=== PATIENT | male | born 1995 | race American Indian/Alaskan Native ===

== ENCOUNTER 2016-07-14 19:35 | Emergency (ER) | payer OTHER ==
[2016-07-14] MEDS ORDERED: PERCOCET 5/325 PO ONE (23:40)
[2016-07-14] MEDS ORDERED: XYLOCAINE 1% 20 mL INFILTRATI NR (23:45)
--- NOTE | 2016-07-15 00:17 | Emergency Department Report ---
HPI - General Chief Complaint: Wound/Laceration Time Seen by Provider: 07/14/16 22:59 - HPI HPI: This is a 20-year-old male presents to ED complaining of right finger injury that happened at work earlier today. 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 Patient sates bleeding began shortly after incident. Patient states bleeding is moderately controlled. Patient denies loss of sensation in the fingers. Patient's knees nailbed came off. Patient denies suicidal shows sinus nausea/vomiting/abdominal pain/chest pain or any other problems. ED Past Medical Hx - Past Medical History Previous Medical History?: No - Surgical History Past Surgical History?: No - Social History Smoking Status: Never Smoker Substance Use Type: None - Medications Home Medications: Home Medications Medication Instructions Recorded Confirmed Last Taken Type Cyclobenzaprine [Flexeril 10mg] 10 mg PO Q8H PRN #21 tablet 09/16/14 Unknown Rx Ranitidine HCl [Ranitidine] 150 mg PO Q12H #30 tablet 09/16/14 Unknown Rx Cephalexin [Keflex] 500 mg PO BID #14 capsule 07/15/16 Unknown Rx Ibuprofen [Motrin] 800 mg PO Q8HR PRN #30 tablet 07/15/16 Unknown Rx oxyCODONE /ACETAMINOPHEN [Percocet 1 tab PO Q6HR PRN #12 tablet 07/15/16 Unknown Rx 5/325] ED Review of Systems ROS: Stated complaint: LACERATION TO FINGER Other details as noted in HPI Constitutional: denies: chills, fever Eyes: denies: eye pain, eye discharge, vision change ENT: denies: ear pain, throat pain Respiratory: denies: cough, shortness of breath, wheezing Cardiovascular: denies: chest pain, palpitations Endocrine: no symptoms reported Gastrointestinal: denies: abdominal pain, nausea, diarrhea Genitourinary: denies: urgency, dysuria, frequency, discharge Musculoskeletal: denies: back pain, joint swelling, arthralgia Skin: denies: rash, lesions Neurological: denies: headache, weakness, numbness, paresthesias, confusion Psychiatric: denies: anxiety, depression Hematological/Lymphatic: denies: easy bleeding, easy bruising Physical Exam - Physical Exam Vital Signs: Vital Signs 07/14/16 20:22 Temperature 98.1 F Pulse Rate 68 Respiratory 22 Rate Blood Pressure 138/74 O2 Sat by Pulse 98 Oximetry Physical Exam: GENERAL: Alert and oriented x3, no apparent distress, Normal Gait, atraumatic. HEAD: Head is normocephalic and a-traumatic. EYES: Extra ocular muscles are intact. Pupils are equal, round, and reactive to light and accommodation. EARS: symetrical, atraumatic, non tender, ear canal clear and moderate cerumen, tympanic membrance non inflamed. gross auditory nml bilaterally. NOSE: Nose symetrical, Nontender,Nares appeared normal. MOUTH:Mouth is well hydrated and without lesions. Tonsils nonerythematous or swollen, Uvula midline, Tongue not elevated. Mucous membranes are moist. Posterior pharynx clear, no exudate or lesions. Patent airways. NECK: Supple. Non edematous, No carotid bruits. No lymphadenopathy or thyromegaly. LUNGS: Symetrical with respiration, No wheezing, no rales or crackles, CTAB. HEART: S1, S2 present, regular rate and rhythm without murmur, no rubs, no gallops. ABDOMEN: No organomegaly was noted,Positive bowel sounds, soft, and non- distended. . Nontender to palpation on all Quadrants, NO CVA tenderness. EXTREMITIES/MUSCULOSKELETAL: No cyanosis, clubbing, rash, lesions or edema. Full ROM bilaterally. UE/LE Pulses 2+ bilaterally. LE and UE 5+ strength bilaterally NEUROLOGIC: No focal Deficit, Cranial nerves II through XII are grossly intact. No loss of sensation, PSYCHIATRIC: Mood is congruent with affect, denies suicidal or homicidal ideations. SKIN: Warm and dry, No lesions, No ulceration or induration present. Body Four View: 1 - 1 cm laceration right across nail bed with nail bed interrupted. ED Course Vital Signs 07/14/16 20:22 Temperature 98.1 F Pulse Rate 68 Respiratory 22 Rate Blood Pressure 138/74 O2 Sat by Pulse 98 Oximetry ED Medical Decision Making - Radiology Data Radiology results: report reviewed, image reviewed FINAL REPORT PROCEDURE: XR HAND 3 RT TECHNIQUE: RIGHT finger radiographs, including AP, lateral, and oblique views. HISTORY: injury w lac COMPARISON: No prior studies are available for comparison. FINDINGS: Fracture (s) and/or Dislocation(s): There is a slightly displaced and impacted fracture through the tuft of the distal phalanx 3rd digit right hand. The remaining osseous structures appear intact.. Joint space(s): Normal . Soft tissues: Mild soft tissue swelling of the 3rd digit. There is a bandage around the distal 3rd digit. Metallic ring overlies the proximal phalanx.. Bone mineralization: Normal . Foreign bodies: Metallic ring overlies the proximal phalanx. Bandaging material along the distal 3rd digit is noted.. IMPRESSION: Slightly displaced impacted fracture through the tuft of the distal phalanx 3rd digit right hand. There is associated soft tissue swelling. Transcribed By: JUAN Dictated By: KESHAV BLAKELY MD Electronically Authenticated By: KESHAV BLAKELY MD Signed Date/Time: 07/15/16 0014 - Medical Decision Making 20-year-old male presents with right middle finger phalanx fracture ED course: Patient received 2 tablets of Percocet. Right hand x-ray shows posterior phalanx fracture: See above The 1cm laceration wound was prepped and draped in sterile fashion. Anesthesia was achieved with 4mL of 1% lidocaine with a digital block. The wound was irrigated with 200cc NS and explored. There were no foreign bodies . Nailbed visualized outside of finger. Bleeding stopped. She will antibody dressed on finger. Finger was dressed sterilely and put in a splint The patient tolerated the procedure without complication. She also received 4 mg of morphine IM. Discussed the x-ray findings the patient. Discussed the patient to follow-up with orthopedics. Discussed the patient take medication as described. Discussed patient to keep the laceration dry for the next 3 days and wrapped up.. Disc discussed with patient to follow-up with orthopedic doctor in 3-5 days. Vital signs are normal. Patient is in no acute respiratory distress. Critical care attestation.: If time is entered above; I have spent that time in minutes in the direct care of this critically ill patient, excluding procedure time. ED Disposition Clinical Impression: Fracture of finger, middle phalanx, right, open Qualifiers: Encounter type: initial encounter Qualified Code(s): S62.629B - Displaced fracture of medial phalanx of unspecified finger, initial encounter for open fracture Laceration of nail bed of finger Qualifiers: Encounter type: initial encounter Qualified Code(s): S61.319A - Laceration without foreign body of unspecified finger with damage to nail, initial encounter Fingertip contusion Qualifiers: Encounter type: initial encounter Qualified Code(s): S60.00XA - Contusion of unspecified finger without damage to nail, initial encounter Disposition: DISCHARGED TO HOME OR SELFCARE Is pt being admited?: No Does the pt Need Aspirin: No Condition: Stable Instructions: Finger Fracture (ED), Toenail/Fingernail Removal (ED) Prescriptions: Cephalexin [Keflex] 500 mg PO BID #14 capsule Ibuprofen [Motrin] 800 mg PO Q8HR PRN #30 tablet PRN Reason: Pain oxyCODONE /ACETAMINOPHEN [Percocet 5/325] 1 tab PO Q6HR PRN #12 tablet PRN Reason: Pain Referrals: PRIMARY MD SAMARA [Primary Care Provider] - 3-5 Days AFTAB FISCHER MD [Staff Physician] - 3-5 Days ELENA STEELE MD [Referring] - 3-5 Days Forms: Accompanied Note, Work/School Release Form(ED) Time of Disposition: 02:23
[2016-07-15] MEDS ORDERED: NACL 0.9% 500 ML IR ONE (00:47)
[2016-07-15] MEDS ORDERED: NACL 0.9% IR ONE (00:48)
[2016-07-15] MEDS ORDERED: MORPHINE ONE (01:21)
[2016-07-15] MEDS ORDERED: ZOFRAN ONE (01:21)
[2016-07-15] MEDS ORDERED: TRIPLE ANTIBIOTIC TP ONE ×2 (01:26→01:29)
[2016-07-15] MEDS ORDERED: MORPHINE IM ONE (01:28)
[2016-07-15] MEDS ORDERED: ZOFRAN IM ONE (01:28)
[2016-07-15 02:41] VITALS: BP 118/66
== END 2016-07-15 02:40 | disposition home or self-care (01) ==
LOC: ED 19:35
DX: S62.632B Displaced fracture of distal phalanx of right middle finger, initial encounter for open fracture (principal); X58.XXXA Exposure to other specified factors, initial encounter; Y93.89 Activity, other specified; Y99.8 Other external cause status; Y92.89 Other specified places as the place of occurrence of the external cause
CPT/HCPCS: 29130; 73130; 96372; 99283; J2270; J2405; A6250